=== PATIENT | female | born 1945 | race Caucasian/White ===

== ENCOUNTER 2023-02-06 12:54 | Outpatient (RCR) | payer MEDICARE, OTHER, SELFPAY | END 2023-02-13 08:51 | disposition home or self-care (01) | LOC: ROT 12:54 | PROVIDERS: ATTENDING PHYSICIAN Orthopaedic Surgery Orthopaedic Trauma | DX: M25.532 Pain in left wrist (principal); S52.532D Colles' fracture of left radius, subsequent encounter for closed fracture with routine healing; Z73.6 Limitation of activities due to disability | CPT/HCPCS: 97010; 97110 ==